=== PATIENT | female | born 1965 | race Caucasian/White ===

== ENCOUNTER 2018-08-05 16:03 | Emergency (ER) | payer BC, MEDICARE ==
[2018-08-05] MEDS ORDERED: Ketorolac Tromethamine 60 MG/2 ML VIAL ONE (17:55)
--- NOTE | 2018-08-05 18:52 | RAD ---
THREE VIEWS RIGHT ANKLE: Date: 08-05-18 History: Right ankle pain/leg pain. Patient had 250 lbs. box fall over on right ankle. FINDINGS: The ankle mortise is congruent. There is no evidence of a fracture, dislocation, or other osseous abn ormality involving the right ankle. Round osseous density is seen overlying the region of the anterio r calcaneus in the region of the navicular bone, probably related to an accessory center of ossificat ion. IMPRESSION: No acute osseous abnormality. POS: [facility]
--- NOTE | 2018-08-05 19:23 | RAD ---
TWO VIEWS RIGHT TIBIA AND FIBULA: Date: 08-05-18 History: Right leg pain. A 250 lbs box fell over on patient's right lower extremity. FINDINGS: There is no evidence of fracture, dislocation, or other osseous abnormality involving the right tibia /fibula. IMPRESSION: No acute osseous abnormality. POS: [facility]
== END 2018-08-05 18:27 | disposition home or self-care (01) ==
LOC: ERS 16:03
DX: S80.11XA Contusion of right lower leg, initial encounter (principal); E03.9 Hypothyroidism, unspecified; F41.9 Anxiety disorder, unspecified; W20.8XXA Other cause of strike by thrown, projected or falling object, initial encounter
CPT/HCPCS: 96372; J1885

== ENCOUNTER 2020-01-15 14:53 | Emergency (ER) | payer BC, MEDICARE | END 2020-01-15 15:32 | disposition home or self-care (01) | LOC: ERS 14:53 | DX: J06.9 Acute upper respiratory infection, unspecified (principal); E03.9 Hypothyroidism, unspecified; F41.9 Anxiety disorder, unspecified | CPT/HCPCS: 99283 ==

== ENCOUNTER 2020-02-01 15:47 | Inpatient (IN) | payer MEDICARE, OTHER ==
[~2020-02-01 15:47] MED LIST: Dexamethasone 20 MG/5 ML VIAL ONE; Iopamidol 370 76% 100 ML VIAL ONE; Lidocaine 1% PF 5 ML VIAL ONE; Ondansetron PF 4 MG/2 ML Vial ONE; PROPOFOL 200 MG/20 ML VIAL ONE; Rocuronium Bromide 10 MG/ML (10ML VIAL) ONE; Succinylcholine Chloride 20 MG/ML 10 ml SYRINGE FS ONE
[2020-02-01] MEDS ORDERED: Ondansetron PF 4 MG/2 ML Vial ONE ×3 (16:11→20:51)
[2020-02-01] MEDS ORDERED: Morphine 4 MG/ML VIAL ONE ×4 (16:11→20:50)
[2020-02-01 16:45] LABS: #Basophils 0.1 thou/uL (0.0-0.2); #Lymphocytes 1.7 thou/uL (1.20-3.40); #Monocytes 0.6 thou/uL (0.11-0.59); #Neutrophils 8.3 thou/uL (1.40-6.50); %Basophils 0.5 % (0.0-1.0); %Eosinophils 0.5 % (0.0-10.0); %Lymphocytes 16.1 % (21.0-51.0); %Monocytes 5.8 % (0.0-10.0); %Neutrophils 77.1 % (42.0-75.0); Hemoglobin 15.3 g/dL (12.0-16.0); Mean Corpuscular HGB CONC 31.5 g/dL (32.0-36.0); Mean Corpuscular Hemoglobin 29.2 pg (27.0-31.0); Mean Corpuscular Volume 92.6 fL (78.0-98.0); Mean Platelet Volume 7.4 fL (7.4-10.4); Platelet Count 349 thou/uL (130-400); RBC Distribution Width 14.2 % (11.5-14.5); Red Blood Cell (RBC) Count 5.23 mill/uL (4.20-5.40); White Blood Cell (WBC) Count 10.8 thou/uL (4.8-10.8)
[2020-02-01 16:52] LABS: BHCG - Serum Negative (NEGATIVE); Pregs Control Background? CLEAR/WHITE (CLR/WHITE); Pregs Control Bar Appear? YES (CONTROL BAR)
--- NOTE | 2020-02-01 16:54 | RAD ---
PORTABLE CHEST ONE VIEW: 02/01/20 at 4:39 p.m. HISTORY: Vomiting, abdominal pain. FINDINGS: The heart size is normal. The lungs are expanded without lobar consolidation, pneumothoraces or pleu ral effusions. There are postop changes with metallic hardware in the lower cervical spine. IMPRESSION: No acute process. POS: [facility]
[2020-02-01 17:09] LABS: ALT (SGPT) 10 U/L (8-55); AST (SGOT) 16 U/L (5-34); Albumin 4.5 g/dL (3.5-5.0); Alkaline Phosphatase 110 U/L (40-110); Anion Gap 18 mmol/L (10-20); BUN (Urea Nitrogen) 16 mg/dL (9.8-20.1); Bilirubin, Total 0.5 mg/dL (0.2-1.2); Calc. Creatinine Clearance 0 mL/min (70-130); Calcium 10.2 mg/dL (7.8-10.44); Carbon Dioxide 33 mmol/L (22-29); Chloride 92 mmol/L (98-107); Estimated GFR-MDRD 67; Globulin 3.8 g/dL (2.4-3.5); Glucose 141 mg/dL (70-105); Potassium 3.2 mmol/L (3.5-5.1); Protein, Total 8.3 g/dL (6.0-8.3); Sodium 140 mmol/L (136-145)
--- NOTE | 2020-02-01 18:37 | CT ---
CT OF THE ABDOMEN AND PELVIS WITH CONTRAST: 02/01/20 COMPARISON: 12/12/16. HISTORY: History of celiac disease. Abdominal pain. Patient has been sick for three weeks. TECHNIQUE: Multiple contiguous axial images were obtained in a CT of the abdomen and pelvis with contrast. Sagit nayan and coronal reformats were performed. FINDINGS: There is a small to moderate amount of free air in the anterior aspect of the peritoneal cavity. Free fluid is seen in the pelvis and in the right upper quadrant of the abdomen. There is severe thickeni ng of the wall of the pyloric region of the stomach and proximal duodenum just passed the pylorus. He small bowel is normal in caliber without significant distention. There are a few scattered diverticu la in the colon. No stranding changes are seen surrounding the colon. The appendix is normal. The [place] er, gallbladder, kidneys, adrenal glands, spleen, and pancreas are unremarkable. The patient is status post hysterectomy. No abdominal or pelvic lymphadenopathy are seen. Atheroscler otic calcifications are seen in the aorta. The visualized inferior thorax and abdominal wall soft tissues are unremarkable. Mild degenerative ch anges are seen in the spine. IMPRESSION: There is free air in the abdomen likely secondary to perforated viscus. The area of perforation is u ncertain. However, there is significant thickening in the region of the pylorus and a perforated jacqueline rigo/duodenal ulcer may be a cause for this free air. Alternatively, there are a few scattered diverti cula in the colon and perforated acute diverticulitis is also a possibility. POS: [facility]
[2020-02-01 18:40] LABS: Bacteria/HPF None Seen HPF (None Seen); Bilirubin Negative (Negative); Blood, Urine Negative (Negative); Clarity Turbid (Clear); Glucose, Urine (Dipstick) Normal (Negative); Leukocyte Negative Leu/uL (Negative); Nitrite Negative (Negative); Protein, Urine (Dipstick) 300 mg/dL (Neg-Trace); RBC/HPF 0-3 HPF (0-3); Squamous Epithelial 0-3 HPF (0-3); WBC/HPF 0-3 HPF (0-3)
[2020-02-01] MEDS ORDERED: metroNIDAZOLE 500 MG/100 ML BAG ONE (19:05)
[2020-02-01] MEDS ORDERED: Cefepime 2 GM VIAL ONE (19:05)
[2020-02-01] MEDS ORDERED: Fentanyl 250 MCG/5 ML VIAL ONE (19:08)
[2020-02-01] MEDS ORDERED: Midazolam HCl 2 mg/2 ml Vial ONE (19:53)
--- NOTE | 2020-02-01 20:19 | HP ---
CHIEF COMPLAINT: Abdominal pain. HISTORY OF PRESENT ILLNESS: This is a 54-year-old female, who presents with severe upper abdominal pain, that has been building over the last 48 hours, seen in emergency department where a CT scan reveals free intraperitoneal air. She has no known history of peptic ulcer or diverticulitis. There is inflammatory change around the duodenum on her CT scan, but she also has diverticula around her sigmoid colon. She had upper endoscopy by Dr. Warren in 2019, but she denies known history of ulcer. She was just recently diagnosed with celiac. Her pain is described as sharp, does not stop, goes straight to her back. Denies history of heart disease. She sees Dr. 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 PAST MEDICAL HISTORY: Above. PAST SURGICAL HISTORY: Supraumbilical hernia repair. MEDICATINOS: Medicines taken daily estradiol. SOCIAL HISTORY: No smoking, alcohol, or other drugs. No NSAID use or abuse. REVIEW OF SYSTEMS: Ten-system review of systems is otherwise negative except as described above. PHYSICAL EXAMINATION: VITAL SIGNS: Pulse is 83, blood pressure is 130/75, respirations are 12, she is afebrile. HEENT: Sclerae anicteric. Oropharynx clear. NECK: No lymphadenopathy. CHEST: Clear. HEART: Regular rate. ABDOMEN: Soft with diffuse peritoneal signs. Well-healed incision above the umbilicus. EXTREMITIES: No ischemia or edema to extremities. LABORATORY DATA: White blood cell count is normal. Electrolytes and creatinine normal. IMAGING STUDIES: CT scan as above. ASSESSMENT: 1. Perforated viscus with moderate free air, needs urgent laparotomy. 2. Upper respiratory symptoms 2 weeks ago. They did order a COVID test today, but she is not suspected of having the disease. PLAN: To the operating room for exploration. 45 minutes spent in direct counseling, exam, reviewing films and discussion. Job ID: [id number] [facility]ENTER[facility]issel
[2020-02-01] MEDS ORDERED: Promethazine HCl 25 MG/ML VIAL IM PRN ×2 (20:49→21:24)
[2020-02-01] MEDS ORDERED: Morphine Sulfate 100 MG in Dextrose 5% in Water 98 ML IV SCH (20:49)
[2020-02-01] MEDS ORDERED: Naloxone HCl 0.4 mg/ml Vial IV PRN (20:49)
[2020-02-01] MEDS ORDERED: Fentanyl 100 MCG/2 ML VIAL ONE (20:50)
[2020-02-01] MEDS ORDERED: Morphine 2 MG/ML SYRINGE ONE (20:51)
[2020-02-01] MEDS ORDERED: D5 1/2 NS w/20 mEq KCL 0 ML ONE (20:51)
[2020-02-01] MEDS ORDERED: Ondansetron HCl/PF 4 MG/2 ML Vial IVP PRN (21:24)
[2020-02-01] MEDS ORDERED: Ketorolac Tromethamine 30 MG/ML VIAL IVP PRN (21:24)
[2020-02-01] MEDS ORDERED: Promethazine HCl 25 MG/ML VIAL SLOW IVP PRN (21:24)
[2020-02-01] MEDS ORDERED: Meperidine HCl/PF 25 MG/ML VIAL SLOW IVP PRN (21:24)
--- NOTE | 2020-02-01 21:32 | OP ---
DATE OF PROCEDURE: 02/01/2020 PREOPERATIVE DIAGNOSIS: Perforated viscus. POSTOPERATIVE DIAGNOSIS: Perforated duodenal ulcer. PROCEDURES PERFORMED: Exploratory laparotomy, abdominal washout, closure and omental patch repair of perforated duodenal ulcer. ANESTHESIA: General. ESTIMATED BLOOD LOSS: 50 mL. COMPLICATIONS: None. FINDINGS: First portion anterior perforation duodenal ulcer just past the pylorus. Biopsy taken. TECHNIQUE: The patient was taken to the operating room and laid supine on the operating room table. After general anesthetic was obtained, a Salazar was placed. The abdomen was prepped and draped in a sterile fashion. A midline incision was made in the upper midline. Cautery dissected down to and into the abdominal cavity. Bookwalter retractor was placed. Significant amount of intraabdominal contamination was found. There was a first portion of duodenal ulcer. There was a lot of bile in the upper abdomen. This was all irrigated out. Biopsy was performed of the ulcer wall and then it was closed using PDS transversely. NG tube was felt to be in good position in the mid body of stomach. A tongue of omentum was brought up and laid over the top of the repair and sewn around using silk pop-off sutures. This completely covers the perforation closure. The abdomen had been irrigated copiously using multiple liters of warm sterile saline until returns were clear. All instrument counts, needle counts, lap counts were correct. #1 PDS was used to close the fascia from the top and bottom and tied in the middle. Subcutaneous tissues were irrigated and closed using skin sukhjinder. Telfa mandy were placed in between the sukhjinder. The patient is en route to Recovery in stable condition. All instrument counts, needle counts, and lap counts were correct. Job ID: [id number]
[2020-02-01] MEDS ORDERED: Pantoprazole 40 MG VIAL IVP SCH ×2 (22:59→23:15)
[2020-02-01] MEDS ORDERED: Dextrose 50% Abboject 50 ML SYRINGE SLOW IVP PRN (22:59)
[2020-02-01] MEDS ORDERED: hydrALAZINE 20 MG/ML VIAL SLOW IVP PRN (22:59)
[2020-02-01] MEDS ORDERED: Dextrose 5% in Water 1,000 ML IV PRN (22:59)
[2020-02-01] MEDS ORDERED: Fluconazole In NaCl,Iso-Osm 200 MG in Premix Bag 1 BAG IVPB SCH (23:15)
[2020-02-01] MEDS ORDERED: Ketorolac Tromethamine 30 MG/ML VIAL IVP SCH (23:59)
[2020-02-02] MEDS: D5 1/2 NS w/20 mEq KCL 1,000 ML IV SCH ×3 (00:03→17:08)
[2020-02-02] MEDS: Meropenem 2 GM in Sodium Chloride 0.9% 100 ML IVPB SCH ×3 (00:07→16:59)
[2020-02-02 00:56] VITALS: BMI 25.4
[2020-02-02] MEDS: metroNIDAZOLE 500 MG in Premix Bag 1 BAG IVPB SCH ×3 (03:06→20:15)
[2020-02-02 05:44] LABS: Band 21 % (5-11); Hemoglobin 13.7 g/dL (12.0-16.0); Lymphocytes 4 % (21-51); MDiff Complete? YES; Mean Corpuscular HGB CONC 30.8 g/dL (32.0-36.0); Mean Corpuscular Hemoglobin 29.2 pg (27.0-31.0); Mean Corpuscular Volume 94.9 fL (78.0-98.0); Mean Platelet Volume 7.4 fL (7.4-10.4); Monocytes 3 % (0-10); Neutrophil 72 % (42-75); Platelet Count 324 thou/uL (130-400); Platelet Morphology Comment Appears Adequate; RBC Distribution Width 14.3 % (11.5-14.5); Red Blood Cell (RBC) Count 4.68 mill/uL (4.20-5.40); White Blood Cell (WBC) Count 15.9 thou/uL (4.8-10.8)
[2020-02-02 05:48] LABS: Anion Gap 14 mmol/L (10-20); BUN (Urea Nitrogen) 16 mg/dL (9.8-20.1); Calc. Creatinine Clearance 100 mL/min (70-130); Calcium 8.3 mg/dL (7.8-10.44); Carbon Dioxide 24 mmol/L (22-29); Chloride 105 mmol/L (98-107); Estimated GFR-MDRD 85; Glucose 167 mg/dL (70-105); Potassium 3.9 mmol/L (3.5-5.1); Sodium 139 mmol/L (136-145)
--- NOTE | 2020-02-02 08:17 | PDOC.GSPN ---
Surgery Progress Note: Subj - Subjective Narrative: Pain controlled. No nausea Surgery Progress Note: Obj - Vital signs Vital signs: Vital Signs - Most Recent Temp Pulse Resp BP Pulse Ox 98.3 F 83 18 125/83 96 02/02/20 03:30 02/02/20 03:30 02/02/20 03:30 02/02/20 03:30 02/02/20 04:00 - Physical Exam General: no distress Cardiovascular: regular rate and rhythm Respiratory: clear to auscultation Abdomen: soft, appropriately tender Wound: dressing clean,dry,intact Surgery Progress Note: Results - Labs Result Diagrams: 02/02/20 05:07 02/02/20 05:07 Lab results: Laboratory Results - last 24 hr 02/02/20 02/02/20 05:07 05:07 WBC 15.9 H RBC 4.68 Hgb 13.7 Hct 44.4 MCV 94.9 MCH 29.2 MCHC 30.8 L RDW 14.3 Plt Count 324 MPV 7.4 Neutrophils % (Manual) 72 Band Neuts % (Manual) 21 H Lymphocytes % (Manual) 4 L Monocytes % (Manual) 3 Plt Morphology Comment Appears Adequate Sodium 139 Potassium 3.9 Chloride 105 Carbon Dioxide 24 Anion Gap 14 BUN 16 Creatinine 0.71 Estimated GFR (MDRD) 85 Glucose 167 H Calcium 8.3 Surgery Progress Note: A/P - Problem (1) Perforated duodenal ulcer Current Visit: Yes Code(s): K26.5 - CHRONIC OR UNSPECIFIED DUODENAL ULCER WITH PERFORATION Status: Acute - Plan Plan: POD 1 omental patch repair -tomorrow, contrast study through NG -ambulate around room
[2020-02-02] MEDS: Pantoprazole 40 MG VIAL IVP SCH (08:25)
[2020-02-02] MEDS: Ondansetron PF 4 MG/2 ML Vial IVP PRN ×2 (09:10→18:48)
[2020-02-03] MEDS: Meropenem 2 GM in Sodium Chloride 0.9% 100 ML IVPB SCH ×4 (00:05→23:46)
[2020-02-03] MEDS: Ondansetron PF 4 MG/2 ML Vial IVP PRN ×2 (00:09→08:19)
[2020-02-03] MEDS: metroNIDAZOLE 500 MG in Premix Bag 1 BAG IVPB SCH ×3 (03:40→20:44)
[2020-02-03] MEDS: D5 1/2 NS w/20 mEq KCL 1,000 ML IV SCH ×3 (04:43→15:58)
[2020-02-03 05:27] LABS: #Lymphocytes 1.5 thou/uL (1.20-3.40); #Monocytes 0.8 thou/uL (0.11-0.59); #Neutrophils 11.4 thou/uL (1.40-6.50); %Basophils 0.1 % (0.0-1.0); %Eosinophils 0.3 % (0.0-10.0); %Lymphocytes 10.9 % (21.0-51.0); %Monocytes 5.7 % (0.0-10.0); Hemoglobin 13.1 g/dL (12.0-16.0); Mean Corpuscular Hemoglobin 30.4 pg (27.0-31.0); Mean Corpuscular Volume 94.9 fL (78.0-98.0); Mean Platelet Volume 7.2 fL (7.4-10.4); Platelet Count 250 thou/uL (130-400); RBC Distribution Width 14.2 % (11.5-14.5); Red Blood Cell (RBC) Count 4.31 mill/uL (4.20-5.40); White Blood Cell (WBC) Count 13.7 thou/uL (4.8-10.8)
[2020-02-03 05:39] LABS: Anion Gap 14 mmol/L (10-20); BUN (Urea Nitrogen) 16 mg/dL (9.8-20.1); Calc. Creatinine Clearance 99 mL/min (70-130); Calcium 8.7 mg/dL (7.8-10.44); Carbon Dioxide 26 mmol/L (22-29); Chloride 102 mmol/L (98-107); Estimated GFR-MDRD 84; Glucose 90 mg/dL (70-105); Potassium 3.6 mmol/L (3.5-5.1); Sodium 138 mmol/L (136-145)
[2020-02-03] MEDS: diphenhydrAMINE 50 MG/ML VIAL IM/IV PRN (06:24)
[2020-02-03] MEDS: Pantoprazole 40 MG VIAL IVP SCH (08:17)
--- NOTE | 2020-02-03 09:42 | RAD ---
Exam: Gastrografin upper GI HISTORY: Evaluate for leak after perforated ulcer repair COMPARISON: none FINDINGS: Supine group burner machine radiograph demonstrates a nasogastric tube in the left upper quadrant. Surgical clips ar e noted in the midline of the abdomen. Prior to the exam, fluoroscopy demonstrates air underneath the right hemidiaphragm, compatible with i atrogenic pneumoperitoneum. Patient was administered a total of 35 cc of Gastrografin. Gastrografin opacifies the stomach. There is nonexistent gastric peristalsis. There is no evidence of contrast flowing into the duodenum. Findings are likely due to a gastric ileus secondary to recent surgery. No leak or extravasation Postprocedure supine and upright abdomen radiograph demonstrates contrast contrast contained within t he stomach. No leak or extravasation. IMPRESSION: 1. No leak or extravasation. 2. Iatrogenic pneumoperitoneum demonstrated in the right hemidiaphragm.
[2020-02-03] MEDS ORDERED: MD-Gastroview 120 ML BOT ONE (09:52)
--- NOTE | 2020-02-03 10:14 | PRG ---
DATE OF SERVICE: 02/03/2020 SUBJECTIVE: Ms. Durbin is postop day 2, perforated duodenal ulcer repair. Ms. Durbin is complaining of pain. She notes that when she is off the NG suction, her bloating worsens. She is having some nausea. She is afebrile. Her vital signs are stable. NG output is 250 overnight. Her abdomen is soft. Her mandy were removed from the incision and new dressings were placed. There was no evidence of infection. LABORATORY DATA: White blood cell count is 13, hemoglobin 13. Sodium 138, potassium 3.6, creatinine is normal. COVID-19 PCR, negative. ASSESSMENT: Postoperative day 2, omental patch duodenal ulcer repair. PLAN: Gastrografin study today, then can likely pull the NG tube and start on clear liquid diet. Job ID: [id number]
[2020-02-03] MEDS: diphenhydrAMINE 25 MG CAP PO PRN ×3 (12:02→23:48)
[2020-02-04] MEDS: Ondansetron PF 4 MG/2 ML Vial IVP PRN ×3 (00:29→19:58)
[2020-02-04] MEDS: metroNIDAZOLE 500 MG in Premix Bag 1 BAG IVPB SCH ×3 (03:28→20:05)
[2020-02-04] MEDS: D5 1/2 NS w/20 mEq KCL 1,000 ML IV SCH ×4 (03:29→23:22)
[2020-02-04] MEDS: Pantoprazole 40 MG VIAL IVP SCH ×2 (08:53→20:02)
[2020-02-04] MEDS: FLUoxetine HCl 10 MG CAP PO SCH (08:53)
[2020-02-04] MEDS: Meropenem 2 GM in Sodium Chloride 0.9% 100 ML IVPB SCH ×3 (09:16→23:22)
[2020-02-04] MEDS ORDERED: Acetaminophen 325 MG TAB PO PRN (09:50)
[2020-02-04] MEDS: traMADol HCl 50 MG TAB PO SCH ×3 (10:29→23:13)
--- NOTE | 2020-02-04 11:57 | PRG ---
DATE OF SERVICE: 02/04/2020 SUBJECTIVE: I am covering for Dr. Abreu, seen Ms. Durbin, who is a 54-year-old woman, postoperative day #3, status post exploratory laparotomy, abdominal washout, and closure of perforated duodenal ulcer with Rey patch. The patient is awake and alert this morning. She reports 7/10 abdominal pain, which is slightly worse than yesterday when her pain was rated at 5/10. She denies any nausea or vomiting. She denies passing any flatus. Gastrografin upper GI study was undertaken yesterday, which revealed no leak. The patient was started on a clear liquid diet yesterday. This morning, she reports no fevers or chills. OBJECTIVE: VITAL SIGNS: Include blood pressure is 126/79, pulse is 73, respiratory rate is 14, temperature is 100.0 degrees Fahrenheit, and oxygen saturation is 100% on room air. ABDOMEN: Soft and nondistended. Bowel sounds are hypoactive. She has moderate tenderness to palpation with no peritoneal signs on examination. IMPRESSION: 1. Postoperative day #3, status post exploratory laparotomy, closure of perforated duodenal ulcer with Rey patch. 2. Residual abdominal pain with no clinical evidence of peritonitis. PLAN: 1. We will resume oral analgesics. 2. We will increase the Protonix to 40 mg IV b.i.d. 3. Continue with clear liquid diet at this time and serial physical examination. Above findings and plan discussed with the patient, who indicates understanding of information given. I have answered her questions. Job ID: [id number]
[2020-02-04] MEDS: Acetaminophen 500 MG TAB PO SCH ×3 (12:06→23:16)
--- NOTE | 2020-02-04 14:08 | EKG ---
Test Reason : Blood Pressure : / mmHG Vent. Rate : 052 BPM Atrial Rate : 052 BPM P-R Int : 110 ms QRS Dur : 084 ms QT Int : 478 ms P-R-T Axes : 010 -21 057 degrees QTc Int : 444 ms Sinus bradycardia with short [place] Inferior infarct , age undetermined Abnormal ECG Confirmed by RAMESH FREY ([id number]), map editor MARTINE REINA ([id number]) on 02/04/2020 2:07:56 PM Referred By: Confirmed By:RAMESH FREY
[2020-02-04] MEDS: diphenhydrAMINE 25 MG CAP PO PRN (16:00)
[2020-02-04] MEDS: diphenhydrAMINE 50 MG/ML VIAL IM/IV PRN (20:10)
[2020-02-04] MEDS: traZODone HCl 50 MG TAB PO SCH (21:37)
--- NOTE | 2020-02-05 00:05 | PRG ---
DATE OF SERVICE: 02/04/2020 SUBJECTIVE: The patient was seen this evening during evening rounds on the medical floor. The patient is postop day #3, status post exploratory laparotomy, abdominal washout and closure of perforated duodenal ulcer with Rey patch. The patient is currently sitting on the side of the bed with moderate abdominal pain. The patient denies any nausea or vomiting. The patient has not passed any flatus or had a bowel movement. The patient states she has been walking frequently and sitting up in the chair most of the day. The patient is tolerating a clear liquid diet. OBJECTIVE: VITAL SIGNS: Stable, afebrile. GENERAL: Well-appearing middle aged female, in no acute distress. IMPRESSION: 1. Postop day #3, status post exploratory laparotomy, closure of perforated duodenal ulcer with Ery patch. 2. Residual abdominal pain with no clinical evidence of peritonitis. PLAN: Continue oral pain medications. Continue clear liquid diet as tolerated. Continue to have the patient ambulate frequently. The plan was discussed with the patient who agrees. Job ID: [id number] MTDD
[2020-02-05] MEDS: traMADol HCl 50 MG TAB PO SCH ×5 (04:55→21:03)
[2020-02-05] MEDS: metroNIDAZOLE 500 MG in Premix Bag 1 BAG IVPB SCH ×3 (04:56→20:11)
[2020-02-05] MEDS: Levothyroxine Sodium 75 MCG TAB PO SCH (04:57)
[2020-02-05] MEDS: Acetaminophen 500 MG TAB PO SCH ×3 (05:17→20:10)
[2020-02-05 05:34] LABS: #Eosinphils 0.2 thou/uL (0.0-0.7); #Lymphocytes 0.6 thou/uL (1.20-3.40); #Monocytes 0.3 thou/uL (0.11-0.59); #Neutrophils 4.7 thou/uL (1.40-6.50); %Basophils 0.6 % (0.0-1.0); %Eosinophils 3.3 % (0.0-10.0); %Monocytes 4.7 % (0.0-10.0); %Neutrophils 80.5 % (42.0-75.0); Hemoglobin 10.4 g/dL (12.0-16.0); Mean Corpuscular HGB CONC 31.2 g/dL (32.0-36.0); Mean Corpuscular Hemoglobin 29.6 pg (27.0-31.0); Mean Corpuscular Volume 95.2 fL (78.0-98.0); Mean Platelet Volume 7.2 fL (7.4-10.4); Platelet Count 239 thou/uL (130-400); RBC Distribution Width 13.7 % (11.5-14.5); Red Blood Cell (RBC) Count 3.51 mill/uL (4.20-5.40); White Blood Cell (WBC) Count 5.8 thou/uL (4.8-10.8)
[2020-02-05 05:51] LABS: Anion Gap 8 mmol/L (10-20); BUN (Urea Nitrogen) 10 mg/dL (9.8-20.1); Calc. Creatinine Clearance 103 mL/min (70-130); Calcium 8.5 mg/dL (7.8-10.44); Carbon Dioxide 33 mmol/L (22-29); Chloride 103 mmol/L (98-107); Estimated GFR-MDRD 88; Glucose 127 mg/dL (70-105); Magnesium 1.9 mg/dL (1.6-2.6); Potassium 3.7 mmol/L (3.5-5.1); Sodium 140 mmol/L (136-145)
[2020-02-05 05:54] LABS: Phosphorus 1.9 mg/dL (2.3-4.7)
[2020-02-05] MEDS ORDERED: Sodium Phosphate 30 MMOL in Sodium Chloride 0.9% 250 ML 250 ML IVPB SCH (07:00)
[2020-02-05] MEDS ORDERED: Magnesium 2 GM/50 ML 2 GM in Premix Bag 1 BAG IVPB SCH (07:45)
[2020-02-05] MEDS ORDERED: Potassium Phosphate 15 MMOL in Sodium Chloride 0.9% 250 ML 250 ML IVPB SCH (07:45)
[2020-02-05] MEDS: Pantoprazole 40 MG VIAL IVP SCH ×2 (09:06→20:11)
[2020-02-05] MEDS: FLUoxetine HCl 10 MG CAP PO SCH (09:06)
[2020-02-05] MEDS: Ondansetron PF 4 MG/2 ML Vial IVP PRN (10:31)
[2020-02-05] MEDS: Meropenem 2 GM in Sodium Chloride 0.9% 100 ML IVPB SCH ×3 (11:51→23:51)
[2020-02-05] MEDS: D5 1/2 NS w/20 mEq KCL 1,000 ML IV SCH ×2 (11:52→21:06)
--- NOTE | 2020-02-05 13:03 | PRG ---
DATE OF SERVICE: 02/05/2020 SUBJECTIVE: The patient was seen this morning during rounds. She was standing up at the edge of the bed with no signs of acute distress. She reported some nausea this morning. Denies flatus and vomiting overnight or this morning. Morphine [employer] was discontinued yesterday and she was started on scheduled p.o. pain medication with Tylenol and tramadol. OBJECTIVE: VITAL SIGNS: Temperature 97.7, pulse 75, respirations 20, oxygen saturation 94% on room air, blood pressure 109/70. GENERAL: Well-appearing middle-aged female standing up at edge of bed with no signs of acute distress. PULMONARY: Equal chest rise and fall. Clear breath sounds bilaterally. No signs of acute respiratory distress. CARDIAC: Regular rate and rhythm. No murmurs, gallops, or rubs. GI: Abdomen is soft, nontender, nondistended. EXTREMITIES: 2+ pulses in all extremities. Gross motor and sensation are intact. No significant swelling noted. NEURO: GCS is 15. LABORATORY FINDINGS: White count 5.8, hemoglobin 10.4, hematocrit 33.4, platelets 239. Sodium 140, potassium 3.7, chloride 103, bicarb 33, BUN 10, creatinine 0.69, glucose 127, phosphorus 1.9, magnesium 1.9. DIAGNOSTIC FINDINGS: There are no new diagnostic findings to report. ASSESSMENT: 1. Postop day 4 status post exploratory laparotomy, abdominal washout, closure and omental patch repair of perforated duodenal ulcer. 2. Postoperative pain, persistent. 3. Acute hypophosphatemia, hypomagnesemia and hypokalemia. PLAN: Continue current clear liquid diet and pain regimen. Continue antibiotics. Continue IV fluids. Continue ambulating as much as possible. Replace phosphorus, magnesium and potassium today via IV route. We are pending return of bowel function at this time. This patient was seen and examined by Dr. Delvalle and myself this morning during rounds. Job ID: [id number]
[2020-02-05] MEDS: traZODone HCl 50 MG TAB PO SCH (20:11)
[2020-02-05] MEDS: Sodium Chloride 0.9% (PF) 10 ML VIAL FS PRN (20:11)
[2020-02-06] MEDS: traMADol HCl 50 MG TAB PO SCH ×4 (03:05→21:34)
[2020-02-06] MEDS: Acetaminophen 500 MG TAB PO SCH ×4 (03:05→20:05)
[2020-02-06] MEDS: metroNIDAZOLE 500 MG in Premix Bag 1 BAG IVPB SCH ×3 (03:08→20:04)
[2020-02-06] MEDS: D5 1/2 NS w/20 mEq KCL 1,000 ML IV SCH (04:11)
[2020-02-06 05:45] LABS: Hemoglobin 9.9 g/dL (12.0-16.0); Mean Corpuscular HGB CONC 30.7 g/dL (32.0-36.0); Mean Corpuscular Volume 94.5 fL (78.0-98.0); Platelet Count 264 thou/uL (130-400); RBC Distribution Width 13.8 % (11.5-14.5); Red Blood Cell (RBC) Count 3.43 mill/uL (4.20-5.40); White Blood Cell (WBC) Count 3.9 thou/uL (4.8-10.8)
[2020-02-06] MEDS: Levothyroxine Sodium 75 MCG TAB PO SCH (05:45)
[2020-02-06 05:47] LABS: Band 5 % (5-11); Eosinophils 2 % (0-10); Lymphocytes 18 % (21-51); MDiff Complete? YES; Monocytes 12 % (0-10); Neutrophil 63 % (42-75)
[2020-02-06 05:55] LABS: Anion Gap 10 mmol/L (10-20); BUN (Urea Nitrogen) 8 mg/dL (9.8-20.1); Calc. Creatinine Clearance 108 mL/min (70-130); Calcium 8.1 mg/dL (7.8-10.44); Carbon Dioxide 27 mmol/L (22-29); Chloride 106 mmol/L (98-107); Estimated GFR-MDRD Greater than 90; Glucose 112 mg/dL (70-105); Magnesium 2.2 mg/dL (1.6-2.6); Potassium 3.7 mmol/L (3.5-5.1); Sodium 139 mmol/L (136-145)
[2020-02-06 05:59] LABS: Phosphorus 1.9 mg/dL (2.3-4.7)
[2020-02-06] MEDS ORDERED: Sodium Phosphate 30 MMOL in Sodium Chloride 0.9% 250 ML 250 ML IVPB SCH (06:30)
[2020-02-06] MEDS ORDERED: Potassium Chloride 20 MEQ TAB PO SCH (08:45)
[2020-02-06] MEDS: FLUoxetine HCl 10 MG CAP PO SCH (10:06)
[2020-02-06] MEDS: Pantoprazole 40 MG VIAL IVP SCH ×2 (10:08→20:05)
[2020-02-06] MEDS: Meropenem 2 GM in Sodium Chloride 0.9% 100 ML IVPB SCH ×2 (10:12→17:30)
--- NOTE | 2020-02-06 11:50 | PRG ---
DATE OF SERVICE: 02/06/2020 SUBJECTIVE: Ms. Durbin is a 54-year-old woman, postop day #4, status post exploratory laparotomy, abdominal washout and closure of perforated duodenal ulcer with Rey patch. The patient is awake and alert today, reports adequate pain control. She reports having had bowel movement and passing flatus. She is tolerating clear liquid diet. OBJECTIVE: VITAL SIGNS: Her vital signs this morning includes blood pressure is 132/82, pulse is 68, respiratory rate is 17, temperature is 97.5 degrees Fahrenheit, oxygen saturation is 94% on room air. ABDOMEN: Soft. Incision is intact, clean, dry with mild incisional tenderness to palpation. She clearly has no peritoneal signs on examination. Bowel sounds are present in all 4 quadrants. LABORATORY FINDINGS: Today includes a CBC with 3900 white blood cells. Hemoglobin and hematocrit 9.9 and 32.4 respectively. Platelet count is 264,000. Metabolic profile; sodium is 139, potassium is 3.7, chloride is 106, bicarb is 27, BUN is 8, creatinine is 0.66, glucose is 112, magnesium is 2.2, and phosphorus is 1.9. IMPRESSIONS: 1. Postoperative day #4, status post exploratory laparotomy, closure of duodenal ulcer perforation with Rey patch. 2. Acute . 3. Acute hypophosphatemia. 4. Stable acute blood loss anemia. PLAN: 1. Correct abnormal electrolytes. 2. The patient will be started on iron replacement therapy and vitamin C. 3. We will advance diet to full liquids. 4. Increase activity. 5. Anticipate discharge within next 24 hours, if the patient continues to tolerate oral intake and show no sign of infection. Above findings and plan discussed with the patient, who indicates understanding of information given. I have answered her questions. Job ID: [id number]
[2020-02-06] MEDS: Ferrous Sulfate 325 MG TAB PO SCH (17:31)
[2020-02-06] MEDS: Ondansetron PF 4 MG/2 ML Vial IVP PRN (20:04)
[2020-02-06] MEDS: Sodium Chloride 0.9% (PF) 10 ML VIAL FS PRN (20:05)
[2020-02-06] MEDS: traZODone HCl 50 MG TAB PO SCH (20:12)
[2020-02-07] MEDS: Meropenem 2 GM in Sodium Chloride 0.9% 100 ML IVPB SCH ×3 (00:39→16:24)
[2020-02-07] MEDS: Acetaminophen 500 MG TAB PO SCH ×4 (03:05→19:47)
[2020-02-07] MEDS: traMADol HCl 50 MG TAB PO SCH ×4 (03:05→21:31)
[2020-02-07] MEDS: metroNIDAZOLE 500 MG in Premix Bag 1 BAG IVPB SCH ×3 (03:06→19:47)
[2020-02-07] MEDS: Levothyroxine Sodium 75 MCG TAB PO SCH (05:29)
[2020-02-07 05:50] LABS: #Eosinphils 0.3 thou/uL (0.0-0.7); #Lymphocytes 1.3 thou/uL (1.20-3.40); #Monocytes 0.4 thou/uL (0.11-0.59); #Neutrophils 1.8 thou/uL (1.40-6.50); %Basophils 1.2 % (0.0-1.0); %Eosinophils 8.9 % (0.0-10.0); %Lymphocytes 32.9 % (21.0-51.0); %Monocytes 9.6 % (0.0-10.0); %Neutrophils 47.4 % (42.0-75.0); Hemoglobin 10.3 g/dL (12.0-16.0); Mean Corpuscular HGB CONC 31.5 g/dL (32.0-36.0); Mean Corpuscular Hemoglobin 29.5 pg (27.0-31.0); Mean Corpuscular Volume 93.8 fL (78.0-98.0); Mean Platelet Volume 6.8 fL (7.4-10.4); Platelet Count 307 thou/uL (130-400); RBC Distribution Width 14.1 % (11.5-14.5); White Blood Cell (WBC) Count 3.8 thou/uL (4.8-10.8)
[2020-02-07 06:10] LABS: Anion Gap 9 mmol/L (10-20); BUN (Urea Nitrogen) 8 mg/dL (9.8-20.1); Calc. Creatinine Clearance 101 mL/min (70-130); Calcium 8.1 mg/dL (7.8-10.44); Carbon Dioxide 27 mmol/L (22-29); Chloride 105 mmol/L (98-107); Estimated GFR-MDRD 87; Glucose 92 mg/dL (70-105); Phosphorus 2.3 mg/dL (2.3-4.7); Potassium 4.3 mmol/L (3.5-5.1); Sodium 137 mmol/L (136-145)
--- NOTE | 2020-02-07 09:13 | PRG ---
DATE OF SERVICE: 02/07/2020 SUBJECTIVE: Ms. Durbin is doing well. She still feels bloated at times with a liquid diet. She is ambulatory. Her pain is controlled. OBJECTIVE: VITAL SIGNS: She is afebrile. Her vital signs are stable. ABDOMEN: Soft, minimally distended. Her wound is healing well. There is no infection. She has bowel sounds. She has appropriate postop tenderness. LABORATORY DATA: White blood cell count is 3.8, hemoglobin is 10, platelet count is 307. Basic metabolic panel within normal limits. ASSESSMENT: Postop omental patch repair for perforated duodenal ulcer. PLAN: Try full liquid diet today. If she tolerates that, she could likely go home tomorrow. Her biopsy showed no malignancy and no evidence of H pylori infection. Job ID: [id number]
[2020-02-07] MEDS: Ferrous Sulfate 325 MG TAB PO SCH ×2 (09:33→16:24)
[2020-02-07] MEDS: Ascorbic Acid 500 mg Chewable Tablet PO SCH (09:33)
[2020-02-07] MEDS: FLUoxetine HCl 10 MG CAP PO SCH (09:33)
[2020-02-07] MEDS: Pantoprazole 40 MG VIAL IVP SCH ×2 (09:34→21:30)
[2020-02-07] MEDS: Ondansetron PF 4 MG/2 ML Vial IVP PRN ×2 (09:39→19:46)
[2020-02-07] MEDS: traZODone HCl 50 MG TAB PO SCH (21:31)
[2020-02-08] MEDS: Meropenem 2 GM in Sodium Chloride 0.9% 100 ML IVPB SCH ×2 (00:02→08:26)
[2020-02-08] MEDS: Acetaminophen 500 MG TAB PO SCH ×4 (02:06→20:41)
[2020-02-08] MEDS: metroNIDAZOLE 500 MG in Premix Bag 1 BAG IVPB SCH (03:54)
[2020-02-08] MEDS: traMADol HCl 50 MG TAB PO SCH ×4 (03:55→21:27)
[2020-02-08] MEDS: Levothyroxine Sodium 75 MCG TAB PO SCH (05:55)
[2020-02-08] MEDS: FLUoxetine HCl 10 MG CAP PO SCH (08:26)
[2020-02-08] MEDS: Ferrous Sulfate 325 MG TAB PO SCH ×2 (08:26→16:56)
[2020-02-08] MEDS: Ascorbic Acid 500 mg Chewable Tablet PO SCH (08:26)
[2020-02-08] MEDS: Sodium Chloride 0.9% (PF) 10 ML VIAL FS PRN (08:27)
[2020-02-08] MEDS: Pantoprazole 40 MG VIAL IVP SCH (08:27)
[2020-02-08] MEDS ORDERED: D5W-AA 4.25% with LYTES 1,000 ML BAG IV SCH (10:45)
[2020-02-08] MEDS ORDERED: Milk Of Magnesia 30 ML UDCUP PO SCH (10:45)
--- NOTE | 2020-02-08 10:55 | PRG ---
DATE OF SERVICE: 02/08/2020 SUBJECTIVE: Ms. Durbin is still having nausea and bloating. She is belching. She is not passing much gas. Her pain is minimal. OBJECTIVE: VITAL SIGNS: She is afebrile. Vital signs are stable. ABDOMEN: Soft, mildly distended. She has some bowel sounds. EXTREMITIES: Her midline wound is healing well without evidence of infection. ASSESSMENT: Postop omental patch repair of perforated duodenal ulcer. I suspect some of this persistent nausea is swollen gastric outlet and should resolve slowly. PLAN: Start PPN. Continue liquid diet. I suspect she will be home in the next few days. Job ID: [id number]
[2020-02-08] MEDS ORDERED: Promethazine HCl 25 MG/ML VIAL IM PRN (19:29)
[2020-02-08] MEDS ORDERED: Ondansetron ODT 4 MG TAB PO PRN (19:29)
[2020-02-08] MEDS: traZODone HCl 50 MG TAB PO SCH (20:40)
[2020-02-08] MEDS: D5W-AA 4.25% with LYTES 1,000 ML IV SCH (21:31)
[2020-02-09] MEDS: Acetaminophen 500 MG TAB PO SCH ×4 (03:25→20:16)
[2020-02-09] MEDS: traMADol HCl 50 MG TAB PO SCH ×4 (04:59→23:17)
[2020-02-09] MEDS: Levothyroxine Sodium 75 MCG TAB PO SCH (04:59)
[2020-02-09] MEDS: Ferrous Sulfate 325 MG TAB PO SCH ×2 (07:45→16:33)
[2020-02-09] MEDS: FLUoxetine HCl 10 MG CAP PO SCH (07:45)
[2020-02-09] MEDS: Ascorbic Acid 500 mg Chewable Tablet PO SCH (07:45)
[2020-02-09] MEDS: D5W-AA 4.25% with LYTES 1,000 ML IV SCH ×2 (07:48→18:40)
--- NOTE | 2020-02-09 10:10 | PRG ---
DATE OF SERVICE: 02/09/2020 SUBJECTIVE: Ms. Durbin has less nausea today. She does feel bloated with her liquid diet. She is not able to move on to full liquids, given her significant allergies to food, but she has been afebrile. Vital signs are stable. Her abdomen is soft. Her wound is healing well. ASSESSMENT: Postop omental patch repair of perforated duodenal ulcer. Pathology, benign. On Protonix. PLAN: I am going to advance her to GI soft diet. I recommend that she do soups or casserole type foods today. If she tolerates that today, discharge home tomorrow. I think she is going to have some component of gastric outlet obstruction, given edema and swelling for a little bit longer. Job ID: [id number]
[2020-02-09] MEDS: traZODone HCl 50 MG TAB PO SCH (20:15)
[2020-02-10] MEDS: Acetaminophen 500 MG TAB PO SCH ×2 (02:37→08:22)
[2020-02-10] MEDS: traMADol HCl 50 MG TAB PO SCH ×2 (03:13→10:14)
[2020-02-10] MEDS: D5W-AA 4.25% with LYTES 1,000 ML IV SCH (04:01)
[2020-02-10] MEDS: Levothyroxine Sodium 75 MCG TAB PO SCH (06:18)
[2020-02-10 07:58] VITALS: BP 117/82; TEMP 97.5
[2020-02-10] MEDS: Ascorbic Acid 500 mg Chewable Tablet PO SCH (08:22)
[2020-02-10] MEDS: FLUoxetine HCl 10 MG CAP PO SCH (08:23)
[2020-02-10] MEDS: Ferrous Sulfate 325 MG TAB PO SCH (08:23)
--- NOTE | 2020-02-11 08:35 | PQF ---
GISELE RASHID BRYAN DAVID MD [id number] CLINICAL DOCUMENTATION CLARIFICATION FORM: POST DISCHARGE Addendum to original discharge summary date: ____ Late entry note date: __ DATE:02/11/2020 ATTN: Stephen Smallwood Please exercise your independent, professional judgment in responding to the clarification form. Clinical indicators are provided on the bottom of this form for your review Please check appropriate box(s) to clarify if the following diagnosis has been ruled in or ruled out: Acute blood loss Anemia [ ] Ruled in diagnosis [ ] Continue to treat [ ] Resolved [ ] Ruled out diagnosis [ X ] Cannot rule out diagnosis [ ] Other diagnosis [ ] Unable to determine In addition, please specify: Present on Admission (POA): [ ] Yes [X ] No [ ] Unable to determine For continuity of documentation, please document condition throughout progress notes and discharge summary. Thank You. CLINICAL INDICATORS - SIGNS / SYMPTOMS / LABS Laboratory 01/31 RBC 5.23, Hgb 15.3, Hct 48.4 Laboratory 02/04 RBC 3.51, Hgb 10.4, Hct 33.4 Laboratory 02/05 RBC 3.43, Hgb 9.9, Hct 32.4 Operative report p1 01/31 estimated blood loss 50 ml PN p1 02/05 [place] stable acute blood loss anemia Vital Signs BP: 02/01=99/62 02/03=99/63 [id number]/0896=639/86 RISK FACTORS Operative report p1 01/31 Perforated duodenal ulcer Operative report p1 01/31 s/p Omental patch repair of perforated duodenal ulcer PN p1 02/04 Dr Hypokalemia PN p1 02/04 Dr Hypomagnesemia PN 02/05 Dr Acute hypophosphatemia TREATMENTS MAR 01/31 IVF NS 1L DEC 14 Ferrous Sulfate 325 mg oral Laboratory monitoring 02/04 PN p2 02/05 started on iron replacement therapy and Vitamin C (This form is maintained as a part of the permanent medical record) 2014 [employer], [employer]. All Rights Reserved [email or web address]
== END 2020-02-10 11:42 | disposition home or self-care (01) | DRG 330 ==
LOC: ERS 15:47 → T4-B 20:03 → SDC/OP 20:19 → T4-B 22:55
PROVIDERS: ADMIT Surgery; ATTEND Surgery
PROC: 0DU907Z Supplement Duodenum with Autologous Tissue Substitute, Open Approach (ICD-10-PCS; principal; 2020-02-01)
PROC: 0DB90ZX Excision of Duodenum, Open Approach, Diagnostic (ICD-10-PCS; 2020-02-01)
PROC: 8E0ZXY6 Isolation (ICD-10-PCS; 2020-02-01)
DX: K26.5 Chronic or unspecified duodenal ulcer with perforation (principal); D62 Acute posthemorrhagic anemia; K31.1 Adult hypertrophic pyloric stenosis; Z20.828 Contact with and (suspected) exposure to other viral communicable diseases; E83.39 Other disorders of phosphorus metabolism; E83.42 Hypomagnesemia; E87.6 Hypokalemia; E03.9 Hypothyroidism, unspecified; K90.0 Celiac disease; F41.9 Anxiety disorder, unspecified; F32.9 Major depressive disorder, single episode, unspecified; R09.89 Other specified symptoms and signs involving the circulatory and respiratory systems; Z79.899 Other long term (current) drug therapy; Z79.890 Hormone replacement therapy
CPT/HCPCS: 36415; 51701; 71045; 74177; 74240; 80048; 80053; 81003; 81015; 83605; 83735; 84100; 84703; 85007; 85025; 85027; 87040; 87086; 87635; 88305; 88312; 93005; 94640; 96361; 96365; 96367; 96375; 96376; C9113; J0692; J1100; J1200; J1450; J1885; J2001; J2185; J2250; J2270; J2405; J2550; J2704; J3010; J3475; J3480; J3490; J7050; J7070; J7620; Q0163; Q9963; Q9967; U0002

== ENCOUNTER 2020-09-11 18:29 | Outpatient (CLI) | payer MEDICARE ==
[2020-09-12 03:58] LABS: SARS-CoV-2 MS2 Positive; SARS-CoV-2 N Gene Negative; SARS-CoV-2 S Gene Negative; SARS-CoV-2 by NAA Not Detected (NotDetected); SARS-CoV-2 orf1ab Negative
== END 2020-09-11 18:30 | disposition home or self-care (01) ==
LOC: LABBT 18:29
PROVIDERS: ATTEND Internal Medicine
DX: Z01.812 Encounter for preprocedural laboratory examination (principal); Z20.828 Contact with and (suspected) exposure to other viral communicable diseases
CPT/HCPCS: 87635; U0003